=== PATIENT | female | born 1980 | race Two or more races ===

== ENCOUNTER 2018-03-26 19:25 | Emergency (ER) | payer MEDICAID ==
[~2018-03-26] VITALS: Ht 152.4 cm; Wt 75.8 kg
[~2018-03-26 19:25] MED LIST: AMOX-580 PO; AZIT-63 PO; AZIT250T81 PO; DIPH25CA83 PO; DULO30CA51 PO; FLUO20CA22 PO; FOLI1TAB16 PO; HYDR-4069 PO; HYDR-4383 PO; HYDR50TA65 PO; INTE44DI SQ; NITR100C6 PO; NORT25CA PO; OMEP20CA10 PO; ONDA8TAB9 PO; PREG150C PO
[2018-03-26 19:31] VITALS: BP 103/48
[2018-03-26] MEDS ORDERED: CYCL-1 PO (20:59)
[2018-03-26] MEDS ORDERED: LIDO700A32 TOP (20:59)
[2018-03-26] MEDS ORDERED: HYDR-3965 PO (20:59)
[2018-03-26] MEDS ORDERED: LIDOcaine 5% patch TP ONE (21:00)
[2018-03-26] MEDS ORDERED: HYDROcodone/acetaminophen 5mg/325mg tablet PO ONE (21:00)
[2018-03-26] MEDS ORDERED: orphenadrine citrate 60mg/2ml inj. IM ONE (21:00)
[2018-03-26] MEDS ORDERED: ondansetron 4mg rapidly disintigrating tab PO ONE (21:00)
[2018-03-26] MEDS ORDERED: acetaminophen 325mg tablet PO ONE (21:00)
== END 2018-03-26 21:14 | disposition home or self-care (01) ==
LOC: ER 19:26
DX: M54.5 Low back pain (principal); G35 Multiple sclerosis; Z79.2 Long term (current) use of antibiotics; Z79.899 Other long term (current) drug therapy
CPT/HCPCS: 96372; 99284; J2360

== ENCOUNTER 2018-12-13 19:24 | Emergency (ER) | payer MEDICAID ==
[~2018-12-13] VITALS: Ht 152.4 cm; Wt 5.0 kg
[~2018-12-13 19:24] MED LIST changes: +CYCL-1 PO; -DULO30CA51 PO; +DULO30CA52 PO; +LIDO700A32 TOP; -OMEP20CA10 PO; +OMEP20CA11 PO
[2018-12-13] MEDS ORDERED: AMOX-580 PO (20:47)
[2018-12-13] MEDS ORDERED: CIPR7.5D EACH EAR (20:47)
[2018-12-13] MEDS ORDERED: acetaminophen 325mg tablet PO ONE (20:50)
[2018-12-13 21:05] VITALS: BP 112/75
== END 2018-12-13 21:03 | disposition home or self-care (01) ==
LOC: ER 19:25
DX: H66.93 Otitis media, unspecified, bilateral (principal); H60.93 Unspecified otitis externa, bilateral; G35 Multiple sclerosis; F32.9 Major depressive disorder, single episode, unspecified; Z79.2 Long term (current) use of antibiotics; Z79.899 Other long term (current) drug therapy
CPT/HCPCS: 99283